=== PATIENT | male | born 1930 | race Caucasian/White ===

== ENCOUNTER → 2017-11-29 | Day surgery (SDC) | payer MEDICARE ==
--- NOTE | 2017-11-28 14:54 | Diagnostic Imaging Report ---
PROCEDURE: Frontal and lateral views of the chest. COMPARISON: Patients [facility], , CHEST 2 VIEWS, 03/01/2016, 10:54. INDICATIONS: PREOPERATIVE CHEST XRAY FOR PROSTATE SURGERY FINDINGS: Lines/tubes: None. Lungs: The lungs are well inflated and clear. There is no evidence of pneumonia or pulmonary edema. Pleura: There is no pleural effusion or pneumothorax. Heart and mediastinum: Cardiac silhouette is unremarkable. Pulmonary vasculature is normal. Atherosclerotic calcification aortic arch. Bones: No acute bony abnormality. Degenerative changes in the thoracic spine. IMPRESSION: 1. No acute cardiopulmonary disease. Roberto Worley M.D. Dictated by: Roberto Worley M.D. on 11/28/2017 at 14:10 Electronically approved by: Roberto Worley M.D. on 11/28/2017 at 14:10
[~2017-11-29] MED LIST: AMLODIPINE BESY10 MG PO; ATENOLOL100 MG PO; ATORVASTATIN CA10 MG PO; BENICAR20 MG PO; BENICAR40 MG PO; DEXAMETHASONE SOD PHOS INJ 4 MG/ML VIAL ONE; FENTANYL CITRATE/PF 100MCG/2 ML INJ ONE; GENTAMICIN 120MG/NS 100ML 100 ML ONE; GLYCOPYRROLATE INJ 1MG/ 5 ML SYR ONE; IOPAMIDOL 300MG/ML 50ML INFUS..BTL IV ONE; LEVAQUIN250 MG PO; LIDOCAINE HCL 2% LOCAL INJ 5 ML SDV VIAL INJ ONE; LIPITOR PO; METFORMIN HCL500 MG PO; MIDAZOLAM HCL 2 MG/2 ML VIAL ONE; NEOSTIGMINE 5 MG/5ML SYR ONE; NIFEDIPINE10 MG PO; ONDANSETRON HCL INJ 2 MG/ML VIAL ONE; PROPOFOL IV EMULSION 10 MG/ML 20 ML VIAL ONE; SEVOFLURANE INHAL SOLN 250 ML PEN BTL ONE; SYNTHROID50 MCG PO; ULTRACET TABLE1 EACH PO; WARFARIN SODIU7.5 MG PO
--- NOTE | 2017-11-29 13:43 | Operative Report ---
DATE OF PROCEDURE: November 29, 2017 PREOPERATIVE DIAGNOSES 1. History of adenocarcinoma of the prostate, post radical prostatectomy. 2. Bulbous urethral stricture. 3. Bladder neck contraction. POSTOPERATIVE DIAGNOSES 1. History of adenocarcinoma of the prostate, post radical prostatectomy. 2. Bulbous urethral stricture. 3. Bladder neck contraction. OPERATIONS 1. Cystourethroscopy. 2. Balloon dilation of the urethral stricture. 3. Balloon dilation of the bladder neck. 4. Hill catheter placement, #22-Turkish. SUPERVISOR VARNISH: Dr. Sorensen. ANESTHETIC: General. INDICATIONS: Mr. Evans is an 86-year-old male, who is very well known to me with a history of adenocarcinoma of the prostate post radical prostatectomy with a history of recurrent urethral stricture and bladder neck contraction and obstruction. He presented at this time with increasing obstruction. PROCEDURE IN DETAIL: This patient was placed on the table in the lithotomy position and was prepped and draped in a sterile manner after satisfactory anesthesia. A #22-Turkish cystoscope was used and passed through the urethra to the distal bulbous urethra where the stricture was. At this point, a 0.35 guidewire was then passed through the working channel of the cystoscope through the stricture area to the bladder. The urethral balloon with 18 cm balloon was then passed over the guidewire through the cystoscope all the way to the level of the stricture and then with some manipulation, I was able to pass the balloon through. Once this was done, the urethral stricture was dilated with the balloon up to 2 atmospheres, fully dilated for 5 minutes. The balloon was deflated. The balloon was then passed over the guidewire through the bladder neck area and inflated again and kept inflated again for 5 minutes. The balloon was deflated and removed. Cystoscopy was then performed and the bladder neck was now widely opened. Cystoscopy was then performed using both right-angle and the foroblique lens and it was noted that the bladder mucosa was normal. There was no evidence of gross tumor, pathology, or any papillary lesion. Both urethral orifices were seen. The bladder was drained, cystoscope removed, and a #22-Turkish Hill catheter was placed and will be left there for 1 week. He is to return to the office in 1 week and at that time, the Hill catheter will be removed. DISCHARGE MEDICATIONS 1. Cipro 250 mg 1 twice a day for 1 week. 2. Ultracet tablet 1 every 8 hours to 12 hours p.r.n. and was given 15. Job#: [id number] SUB
== END | disposition home or self-care (01) ==
LOC: OR 07:06
PROVIDERS: ATTEND Specialist
DX: N35.8 Other urethral stricture (principal); C61 Malignant neoplasm of prostate; N13.8 Other obstructive and reflux uropathy; E11.9 Type 2 diabetes mellitus without complications; I10 Essential (primary) hypertension; I48.91 Unspecified atrial fibrillation
CPT/HCPCS: 36415; 51702; 52281; 71046; 76000; 82948; 93005; J1100; J1580; J2001; J2250; J2405; J3490; Q9967